=== PATIENT | male | born 1985 | race Caucasian/White ===

== ENCOUNTER 2020-03-25 17:11 | Emergency (ER) | payer BC ==
--- NOTE | 2020-03-25 17:32 | ED ---
SOB HPI - General Chief Complaint: Shortness of Breath Stated Complaint: fever/chest pain Time Seen by Provider: 03/25/20 17:20 Source: patient, RN notes reviewed Mode of arrival: ambulatory Limitations: no limitations - History of Present Illness Initial Comments: This is a 34-year-old male presents emergency from she complaint of chest pain, shortness breath and fever. Patient states is a sudden onset of symptoms yesterday. Patient states that he feels a he had told he states he still labored breathing. Patient has no symptoms past multiple history. He states he has minimal coughand sore throat, headache or dizziness. Patient states his [facility] er was positive for cocaine 2 weeks ago. Denies any sick contacts. Patient denies any dysuria hematuria. Patient denies any abdominal discomfort or any other complaints. - Related Data Allergies Allergy/AdvReac Type Severity Reaction Status Date / Time No Known Allergies Allergy Verified 03/25/20 17:17 Review of Systems ROS Statement: Those systems with pertinent positive or pertinent negative responses have been documented in the HPI. ROS Other: All systems not noted in ROS Statement are negative. Past Medical History Past Medical History: GERD/Reflux, Sleep Apnea/CPAP/BIPAP History of Any Multi-Drug Resistant Organisms: None Reported Past Surgical History: No Surgical Hx Reported Past Psychological History: No Psychological Hx Reported Smoking Status: Light tobacco smoker Past Alcohol Use History: Rare Past Drug Use History: None Reported General Exam Limitations: no limitations General appearance: alert, in no apparent distress Head exam: Present: atraumatic, normocephalic, normal inspection Eye exam: Present: normal appearance, PERRL, EOMI. Absent: scleral icterus, conjunctival injection, periorbital swelling ENT exam: Present: normal exam, normal oropharynx, mucous membranes moist Neck exam: Present: normal inspection, full ROM. Absent: tenderness, meningismus, lymphadenopathy Respiratory exam: Present: normal lung sounds bilaterally. Absent: respiratory distress, wheezes, rales, rhonchi, stridor Cardiovascular Exam: Present: normal rhythm, tachycardia, normal heart sounds. Absent: systolic murmur, diastolic murmur, rubs, gallop, clicks Neurological exam: Present: alert, oriented X3, CN II-XII intact, reflexes nor mal. Absent: motor sensory deficit Skin exam: Present: warm, dry, intact, normal color. Absent: rash Course Vital Signs 03/25/20 03/25/20 17:12 18:44 Temperature 100.6 F H 100.1 F H Pulse Rate 115 H 97 Respiratory 20 18 Rate Blood Pressure 137/75 113/79 O2 Sat by Pulse 97 98 Oximetry Medical Decision Making - Medical Decision Making X-ray revealed no significant findings. Labs reviewed shows evidence of cytosis 12.5 neutrophils 11 the process 0.9, negative d-dimer, CRP 82.5. Otherwise unremarkable labs. Patient was given acetaminophen, IV fluids patient feels improved at this time. I did expand on that there is a pending Covid tests and that he does have some symptoms and he had known exposure. He should self isolate until known test results. Patient continue Tylenol return for any worsening symptoms. - Lab Data Result diagrams: 03/25/20 17:45 03/25/20 17:45 Lab Results 03/25/20 03/25/20 03/25/20 Range/Units 17:45 17:45 17:45 WBC 12.5 H (3.8-10.6) k/uL RBC 4.47 (4.30-5.90) m/uL Hgb 13.8 (13.0-17.5) gm/dL Hct 40.1 (39.0-53.0) % MCV 89.6 (80.0-100.0) fL MCH 30.8 (25.0-35.0) pg MCHC 34.3 (31.0-37.0) g/dL RDW 12.2 (11.5-15.5) % Plt Count 224 (150-450) k/uL Neutrophils % 88 % Lymphocytes % 7 % Monocytes % 3 % Eosinophils % 1 % Basophils % 0 % Neutrophils # 11.0 H (1.3-7.7) k/uL Lymphocytes # 0.9 L (1.0-4.8) k/uL Monocytes # 0.4 (0-1.0) k/uL Eosinophils # 0.1 (0-0.7) k/uL Basophils # 0.0 (0-0.2) k/uL PT 9.9 (9.0-12.0) sec INR 0.9 (<1.2) APTT 22.9 (22.0-30.0) sec D-Dimer 0.37 (<0.60) mg/L FEU Sodium 136 L (137-145) mmol/L Potassium 4.0 (3.5-5.1) mmol/L Chloride 104 (98-107) mmol/L Carbon Dioxide 23 (22-30) mmol/L Anion Gap 9 mmol/L BUN 12 (9-20) mg/dL Creatinine 0.93 (0.66-1.25) mg/dL Est GFR (CKD-EPI)AfAm >90 (>60 ml/min/1.73 sqM) Est GFR (CKD-EPI)NonAf >90 (>60 ml/min/1.73 sqM) Glucose 133 H (74-99) mg/dL Plasma Lactic Acid Buddy (0.7-2.0) mmol/L Calcium 9.5 (8.4-10.2) mg/dL Magnesium 1.9 (1.6-2.3) mg/dL Total Bilirubin 1.1 (0.2-1.3) mg/dL AST 37 (17-59) U/L ALT 49 (4-49) U/L Alkaline Phosphatase 96 (38-126) U/L Lactate Dehydrogenase 417 (313-618) U/L C-Reactive Protein 82.5 H (<10.0) mg/L Total Protein 7.5 (6.3-8.2) g/dL Albumin 4.7 (3.5-5.0) g/dL Urine Color Urine Appearance (Clear) Urine pH (5.0-8.0) Ur Specific [place] (1.001-1.035) Urine Protein (Negative) Urine Glucose (UA) (Negative) Urine Ketones (Negative) Urine Blood (Negative) Urine Nitrite (Negative) Urine Bilirubin (Negative) Urine Urobilinogen (<2.0) mg/dL Ur Leukocyte Esterase (Negative) 03/25/20 03/25/20 Range/Units 17:45 18:39 WBC (3.8-10.6) k/uL RBC (4.30-5.90) m/uL Hgb (13.0-17.5) gm/dL Hct (39.0-53.0) % MCV (80.0-100.0) fL MCH (25.0-35.0) pg MCHC (31.0-37.0) g/dL RDW (11.5-15.5) % Plt Count (150-450) k/uL Neutrophils % % Lymphocytes % % Monocytes % % Eosinophils % % Basophils % % Neutrophils # (1.3-7.7) k/uL Lymphocytes # (1.0-4.8) k/uL Monocytes # (0-1.0) k/uL Eosinophils # (0-0.7) k/uL Basophils # (0-0.2) k/uL PT (9.0-12.0) sec INR (<1.2) APTT (22.0-30.0) sec D-Dimer (<0.60) mg/L FEU Sodium (137-145) mmol/L Potassium (3.5-5.1) mmol/L Chloride (98-107) mmol/L Carbon Dioxide (22-30) mmol/L Anion Gap mmol/L BUN (9-20) mg/dL Creatinine (0.66-1.25) mg/dL Est GFR (CKD-EPI)AfAm (>60 ml/min/1.73 sqM) Est GFR (CKD-EPI)NonAf (>60 ml/min/1.73 sqM) Glucose (74-99) mg/dL Plasma Lactic Acid Buddy 1.1 (0.7-2.0) mmol/L Calcium (8.4-10.2) mg/dL Magnesium (1.6-2.3) mg/dL Total Bilirubin (0.2-1.3) mg/dL AST (17-59) U/L ALT (4-49) U/L Alkaline Phosphatase (38-126) U/L Lactate Dehydrogenase (313-618) U/L C-Reactive Protein (<10.0) mg/L Total Protein (6.3-8.2) g/dL Albumin (3.5-5.0) g/dL Urine Color Light Yellow Urine Appearance Clear (Clear) Urine pH 6.5 (5.0-8.0) Ur Specific [place] 1.007 (1.001-1.035) Urine Protein Negative (Negative) Urine Glucose (UA) Negative (Negative) Urine Ketones Negative (Negative) Urine Blood Negative (Negative) Urine Nitrite Negative (Negative) Urine Bilirubin Negative (Negative) Urine Urobilinogen <2.0 (<2.0) mg/dL Ur Leukocyte Esterase Negative (Negative) Disposition Clinical Impression: Viral syndrome, Fever Disposition: HOME SELF-CARE Condition: Stable Instructions (If sedation given, give patient instructions): Fever in Adults (ED) Additional Instructions: Please follow up on Covid testing.Please return to the Emergency Department if symptoms worsen or any other concerns. Is patient prescribed a controlled substance at d/c from ED?: No Referrals: None,Stated [Primary Care Provider] - 1-2 days Time of Disposition: 18:58
[2020-03-25 17:54] LABS: Basophils % (A) 0 %; Eosinophils # (A) 0.1 k/uL (0-0.7); Eosinophils % (A) 1 %; HCT 40.1 % (39.0-53.0); HGB 13.8 gm/dL (13.0-17.5); Lymphocytes # (A) 0.9 k/uL (1.0-4.8); Lymphocytes % (A) 7 %; MCH 30.8 pg (25.0-35.0); MCHC 34.3 g/dL (31.0-37.0); MCV 89.6 fL (80.0-100.0); Mean Platelet Volume 7.2; Monocytes # (A) 0.4 k/uL (0-1.0); Monocytes % (A) 3 %; Neutrophils % (A) 88 %; Platelet Count 224 k/uL (150-450); RBC 4.47 m/uL (4.30-5.90); RDW 12.2 % (11.5-15.5); WBC 12.5 k/uL (3.8-10.6)
[2020-03-25 18:04] LABS: ALT 49 U/L (4-49); AST 37 U/L (17-59); African American GFR (CKD) >90 (>60 ml/min/1.73 sqM); Albumin 4.7 g/dL (3.5-5.0); Alkaline Phosphatase 96 U/L (38-126); Anion Gap 9 mmol/L; Blood Urea Nitrogen 12 mg/dL (9-20); C Reactive Protein 82.5 mg/L (<10.0); Calcium 9.5 mg/dL (8.4-10.2); Carbon Dioxide 23 mmol/L (22-30); Chloride 104 mmol/L (98-107); Glucose 133 mg/dL (74-99); LDH 417 U/L (313-618); Magnesium 1.9 mg/dL (1.6-2.3); Non-African American GFR(CKD) >90 (>60 ml/min/1.73 sqM); Sodium 136 mmol/L (137-145); Total Bilirubin 1.1 mg/dL (0.2-1.3); Total Protein 7.5 g/dL (6.3-8.2)
[2020-03-25 18:10] LABS: D-Dimer 0.37 mg/L FEU (<0.60); INR 0.9 (<1.2); Partial Thromboplastin Time 22.9 sec (22.0-30.0); Prothrombin Time 9.9 sec (9.0-12.0)
--- NOTE | 2020-03-25 18:14 | XR ---
EXAMINATION TYPE: XR chest 2V DATE OF EXAM: 03/25/2020 COMPARISON: NONE HISTORY: Chest pain TECHNIQUE: 2 views FINDINGS: Heart and mediastinum are normal. Lungs are clear of consolidation. There are no hilar mass es. Diaphragm is normal. Bony thorax is intact. IMPRESSION: No active cardiopulmonary disease. Normal heart.
[2020-03-25] MEDS ORDERED: ACETAMINOPHEN TAB 500 MG TAB PO STA (18:39)
[2020-03-25 18:46] VITALS: BP 113/79; PULSE 97; RESP 18; TEMP 100.1
[2020-03-25 18:51] LABS: Appearance,Urine Clear (Clear); Bilirubin,Urine Negative (Negative); Blood,Urine Negative (Negative); Color,Urine Light Yellow; Glucose,Urine (UA) Negative (Negative); Ketones,Urine Negative (Negative); Leukocyte Esterase,Urine Negative (Negative); Nitrite,Urine Negative (Negative); PH, Urine 6.5 (5.0-8.0); Protein,Urine Negative (Negative); Specific Gravity,Urine 1.007 (1.001-1.035); Urobilinogen,Urine <2.0 mg/dL (<2.0)
[2020-03-26 12:15] LABS: Ferritin 287.4 ng/mL (22.0-322.0)
== END 2020-03-25 19:06 | disposition home or self-care (01) ==
LOC: EC 17:11
DX: B34.9 Viral infection, unspecified (principal); R00.0 Tachycardia, unspecified; F17.200 Nicotine dependence, unspecified, uncomplicated; G47.30 Sleep apnea, unspecified; Z99.89 Dependence on other enabling machines and devices; Z20.828 Contact with and (suspected) exposure to other viral communicable diseases
CPT/HCPCS: 99285; 36415; 93005; 85379; 80053; 82728; 83605; 83615; 83735; 85025; 85610; 85730; 86140; 81003; 87040; 71046; U0003